=== PATIENT | male | born 1985 | race Caucasian/White ===

== ENCOUNTER 2022-05-14 23:46 | Emergency (ER) | payer OTHER ==
[2022-05-14 23:55] VITALS: BP 136/86; PULSE 76; RESP 14; TEMP 98.6; BMI 36.9
== END 2022-05-15 01:00 | disposition home or self-care (01) ==
LOC: FER 23:46
DX: S93.402A Sprain of unspecified ligament of left ankle, initial encounter (principal); X50.0XXA Overexertion from strenuous movement or load, initial encounter
CPT/HCPCS: 73610-TC-LT-FY; 73630-TC-LT; 99283-25

== ENCOUNTER 2022-08-08 10:33 | Emergency (ER) | payer OTHER ==
[2022-08-08 10:44] VITALS: BP 122/77; PULSE 80; RESP 16; TEMP 98.1; BMI 34.4
[2022-08-08] MEDS ORDERED: LIDOCAINE 5% TOPICAL PATCH TP ONE (10:54)
[2022-08-08] MEDS ORDERED: LIDOCAINE 5% TOPICAL PATCH ONE (10:56)
[2022-08-08] MEDS ORDERED: LIDOCAINE PATCH REMOVAL MC SCH (22:00)
== END 2022-08-08 11:03 | disposition home or self-care (01) ==
LOC: FER 10:33
DX: G57.01 Lesion of sciatic nerve, right lower limb (principal)
CPT/HCPCS: 99282-25

== ENCOUNTER 2022-12-14 08:59 | Emergency (ER) | payer OTHER ==
[2022-12-14 09:13] VITALS: BP 127/74; PULSE 58; RESP 18; TEMP 98.8; BMI 32.1
[2022-12-14] MEDS ORDERED: ACETAMINOPHEN 325 MG TABLET (FP) PO ONE (09:25)
[2022-12-14] MEDS ORDERED: KETOROLAC TROMETHAMINE 30 MG/1 ML VIAL IM ONE (09:25)
[2022-12-14] MEDS ORDERED: KETOROLAC TROMETHAMINE 30 MG/1 ML VIAL ONE (09:30)
[2022-12-14] MEDS ORDERED: ACETAMINOPHEN 325 MG TABLET (FP) ONE (09:30)
== END 2022-12-14 09:37 | disposition home or self-care (01) ==
LOC: FER 08:59
PROC: 3E0233Z Introduction of Anti-inflammatory into Muscle, Percutaneous Approach (ICD-10-PCS; principal; 2022-12-14)
DX: R10.9 Unspecified abdominal pain (principal); M79.10 Myalgia, unspecified site
CPT/HCPCS: 99284-25

== ENCOUNTER 2023-05-15 03:38 | Emergency (ER) | payer OTHER ==
[2023-05-15 03:49] VITALS: BP 124/63; PULSE 59; RESP 18; TEMP 98.5; BMI 26.6
[2023-05-15] MEDS ORDERED: KETOROLAC TROMETHAMINE 60 MG/2 ML VIAL IM ONE (04:02)
[2023-05-15] MEDS ORDERED: KETOROLAC TROMETHAMINE 60 MG/2 ML VIAL ONE (04:03)
== END 2023-05-15 04:08 | disposition home or self-care (01) ==
LOC: FER 03:38
PROC: 3E0233Z Introduction of Anti-inflammatory into Muscle, Percutaneous Approach (ICD-10-PCS; principal; 2023-05-15)
DX: M54.50 Low back pain, unspecified (principal)
CPT/HCPCS: 99284-25

== ENCOUNTER 2023-05-22 00:23 | Emergency (ER) | payer OTHER ==
[2023-05-22 00:32] VITALS: BMI 26.7
[2023-05-22 00:42] VITALS: BP 135/84; PULSE 81; RESP 18; TEMP 99.2
[2023-05-22] MEDS ORDERED: AMOXICILLIN 500 MG CAPSULE (FP) PO ONE (01:03)
[2023-05-22] MEDS ORDERED: IBUPROFEN 600 MG TABLET (FP) PO ONE ×2 (01:04→01:10)
[2023-05-22] MEDS ORDERED: AMOXICILLIN 250 MG CAPSULE ONE (01:10)
== END 2023-05-22 01:14 | disposition home or self-care (01) ==
LOC: FER 00:23
DX: J02.9 Acute pharyngitis, unspecified (principal); R50.9 Fever, unspecified
CPT/HCPCS: 87651; 99283-25

== ENCOUNTER 2023-06-07 03:31 | Emergency (ER) | payer OTHER ==
[2023-06-07 03:48] VITALS: BP 137/91; PULSE 67; RESP 18; TEMP 97.6; BMI 32.3
== END 2023-06-07 03:53 | disposition home or self-care (01) ==
LOC: FER 03:31
DX: M54.9 Dorsalgia, unspecified (principal); M79.10 Myalgia, unspecified site; R50.9 Fever, unspecified; J06.9 Acute upper respiratory infection, unspecified; B97.89 Other viral agents as the cause of diseases classified elsewhere; Z20.822 Contact with and (suspected) exposure to COVID-19
CPT/HCPCS: 0241U-QW; 99283-25

== ENCOUNTER 2023-06-09 15:03 | Emergency (ER) | payer OTHER ==
[2023-06-09 15:17] VITALS: BP 121/74; PULSE 78; RESP 16; TEMP 97.8; BMI 32.3
[2023-06-09] MEDS ORDERED: TETRACAINE 0.5% OPHTH SOLN 2 ML BOTTLE ONE (15:25)
[2023-06-09] MEDS ORDERED: FLUORESCEIN NA 1 EA STRIP ONE (15:25)
[2023-06-09] MEDS: TETRACAINE 0.5% HCL 0.6ML DROPPER.BOTTLE OS ONE (15:35)
[2023-06-09] MEDS: FLUORESCEIN NA 1 EA STRIP OS ONE (15:35)
== END 2023-06-09 16:02 | disposition home or self-care (01) ==
LOC: FER 15:03
DX: H10.9 Unspecified conjunctivitis (principal)
CPT/HCPCS: 99283-25

== ENCOUNTER 2023-07-22 13:55 | Emergency (ER) | payer OTHER ==
[2023-07-22 14:09] VITALS: BP 132/77; PULSE 86; RESP 18; TEMP 97.8; BMI 33.5
== END 2023-07-22 16:08 | disposition home or self-care (01) ==
LOC: FER 13:55
DX: J34.89 Other specified disorders of nose and nasal sinuses (principal)
CPT/HCPCS: 99283-25